=== PATIENT | male | born 1980 | race Caucasian/White ===

== ENCOUNTER 2017-11-26 16:45 | Inpatient (IN) | payer OTHER ==
[~2017-11-26] VITALS: Ht 182.9 cm; Wt 86.2 kg
--- NOTE | 2017-11-26 16:45 | NUR ---
PT TO BED 9 BY EMS
[2017-11-26 16:48] VITALS: BP 114/86
--- NOTE | 2017-11-26 16:52 | NUR ---
37YO M BIBA FOR ALOC R/T ETOH. PT STATES DRINKING "ALOT" OF VODKA. 4 MG OF ZOFRAN GIVENT ODT INROUTE. PT WITH C/O LOWER ABD PAIN. PT STATES SI WANTING TO "TAKE PILLS TO KILL HIMSELF . SKIN IS PINK/WARM/DRY; AWAKE,ALERT; LUNGS CLEAR BL; HR EVEN AND REGULAR; PT DENIES ANY FEVER, CP, SOB, OR COUGH AT THIS TIME; PATIENT STATES PAIN OF 9/10 AT THIS TIME; VSS; PATIENT POSITIONED FOR COMFORT; HOB ELEVATED; BEDRAILS UP X2; BED DOWN. ER MD MADE AWARE OF PT STATUS.
--- NOTE | 2017-11-26 17:13 | NUR ---
[facility] CALLED FOR EVAL. [address] WHATLEY
--- NOTE | 2017-11-26 18:00 | NUR ---
[place] [employer] AT BEDSIDE TO ASSESS PT.
--- NOTE | 2017-11-26 18:17 | NUR ---
[place] [facility] PLACE PATIENT ON 5150 HOLD, DANGER TO SELF. OBSERVED SUICIDAL PROTOCOL.PATIENT PLACE CLOSE TO NURSES STATION WITH STEPHEN LYON.
--- NOTE | 2017-11-26 18:19 | NUR ---
PT MOVED TO BED 5
[2017-11-26] MEDS ORDERED: KETOROLAC 60 MG/2 ML VIAL IM ONE (18:40)
--- NOTE | 2017-11-26 19:10 | NUR ---
PT'S BELONGINGS ARE WITH SECURITY
--- NOTE | 2017-11-26 19:10 | NUR ---
Patient appears to be resting comfortably in bed. Vital Signs within normal limits. Respirations even and unlabored. sitter at bedside
--- NOTE | 2017-11-26 19:48 | NUR ---
Dr. Webster evaluating patient at bedside.
[2017-11-26 20:07] LABS: BASOPHILS # (AUTO) 0.1 K/uL (0.00-0.22); EOSINOPHILS # (AUTO) 0.1 K/uL (0-0.4); HEMATOCRIT 51.2 % (36-52); HEMOGLOBIN 17.4 g/dL (12.0-18.0); MEAN CORPUSCULAR HEMOGLOBIN 30 pg (27-31); MEAN CORPUSCULAR HGB CONC 34 g/dL (33-37); MEAN CORPUSCULAR VOLUME 86.8 fL (80-94); MONOCYTES % (AUTO) 9.6 % (1.7-9.3); NEUTROPHILS # (AUTO) 5.6 K/uL (1.8-7.7); NEUTROPHILS % (AUTO) 51.4 % (42.2-75.2); PLATELET COUNT (AUTO) 432 K/uL (140-450); RED CELL DISTRIBUTION WIDTH 13.8 % (11.6-13.7); WHITE BLOOD COUNT (AUTO) 10.9 K/uL (4.8-10.8)
--- NOTE | 2017-11-26 20:10 | NUR ---
Patient appears to be resting comfortably in bed. Vital Signs within normal limits. Respirations even and unlabored. sitter at bedside
[2017-11-26] MEDS ORDERED: NACL 0.9% 2,000 ML IV ONE (20:15)
[2017-11-26] MEDS ORDERED: LORazepam 2 MG/ML VIAL IVP ONE (20:15)
[2017-11-26 20:20] LABS: APPEARANCE,URINE CLEAR (CLEAR); BILIRUBIN,URINE NEGATIVE (NEGATIVE); BLOOD, URINE NEGATIVE (NEGATIVE); COLOR,URINE YELLOW (YELLOW); LEUKOCYTE ESTERASE ,URINE NEGATIVE (NEGATIVE); NITRITE, URINE NEGATIVE (NEGATIVE); UGLUCOSE NEGATIVE (NEGATIVE)
[2017-11-26 20:28] LABS: ACETAMINOPHEN < 0.5 ug/ml (10-30); ALBUMIN 4.2 g/dL (3.4-5.0); ANION GAP 8.9 (8-16); ASPARTATE AMINOTRANSFERASE 91 U/L (15-37); CARBON DIOXIDE 28.7 mmol/L (21-32); CHLORIDE 108 mmol/L (98-107); CREATININE 1.1 mg/dL (0.7-1.3); GFR ARICAN-AMERICAN 97 mL/min (>90); GLUCOSE 130 mg/dL (74-106); POTASSIUM 3.6 mmol/L (3.5-5.1); SALICYLATE < 2.8 mg/dL (2.8-20.0); SODIUM SERUM 142 mmol/L (136-145); TOTAL BILIRUBIN 0.7 mg/dL (0.0-1.0); UREA NITROGEN, BLOOD 11 mg/dL (7-18)
[2017-11-26 20:28] LABS: BARBITURATE, URINE NEG. ng/ml (NEG <=200); BENZODIAZEPINE, URINE NEG. ng/mL (NEG <=200); CANNABINOID, URINE NEG. ng/mL (NEG <=50); COCAINE, URINE NEG. ng/mL (NEG <=300); OPIATE, URINE NEG. ng/mL (NEG <=2000); PHENCYCLIDINE SCREEN,URINE NEG. ng/mL (NEG <=25)
--- NOTE | 2017-11-26 21:10 | NUR ---
Patient appears to be resting comfortably in bed. Vital Signs within normal limits. Respirations even and unlabored. sitter at bedside
--- NOTE | 2017-11-26 22:10 | NUR ---
Patient appears to be resting comfortably in bed. Vital Signs within normal limits. Respirations even and unlabored. sitter at bedside
--- NOTE | 2017-11-26 23:18 | NUR ---
Patient appears to be resting comfortably in bed. Vital Signs within normal limits. Respirations even and unlabored. sitter at bedside
--- NOTE | 2017-11-27 01:30 | NUR ---
PT AGITATED WITH DISRUPTIVE BEHAVIOR TO STAFF AND ER, STATES " THIS IS BULLSHIT, I NEED ATIVAN". PT REDIRECTED AND REORIENTED, NOT EFFECTIVE. SECURITY CALLED AT BEDSIDE
--- NOTE | 2017-11-27 01:55 | NUR ---
PT CONTINUES WITH DISRUPTIVE BEHAVIOR. MARYANN FRIEDMAN MADE AWARE
[2017-11-27] MEDS ORDERED: LORazepam 2 MG/ML VIAL IVP ONE (02:05)
--- NOTE | 2017-11-27 02:32 | NUR ---
PT ASLEEP COMFORTABLY AT THIS TIME. RESPIRATIONS EVEN AND UNLABORED
[2017-11-27] MEDS ORDERED: MULTIVITAMIN-12 10 ML, THIAMINE 100 MG, MAGNESIUM SULFATE 50% 2,000 MG, FOLIC ACID 1 MG... IV SCH ×5 (03:30)
--- NOTE | 2017-11-27 03:50 | NUR ---
PT ARRIVED AT UNIT VIA GURNEY, AMBULATED TO BED, NO DISTRESS NOTED, PT STABLE, ON ROOM AIR, NO SOB, REPORT RECEIVED FROM ER NURSE ANTONIO PARADA, IV TO RAC 18G PATENT, INTACT, SL, PT ON 5150 PRECAUTION, MRSA SWAB TAKEN, V/S TAKEN WNL, ORIENT PT TO BED, INITIAL ASSESSMENT DONE, ALL SAFETY PRECAUTION MET, 1:1 SITTER AT BEDSIDE, WILL CONTINUE TO MONITOR.
--- NOTE | 2017-11-27 03:52 | NUR ---
Patient will be admitted to care of [facility]. Admited to MS. Will go to room 109B. Belongings list completed. Report to SARA PARADA.
[2017-11-27 04:00] VITALS: BP 115/82
[2017-11-27] MEDS ORDERED: ACETAMINOPHEN 325 MG TAB PO PRN (04:20)
--- NOTE | 2017-11-27 04:21 | NUR ---
CALLED DR. ALLEN REGARDING PT BANANA BAG HAS NO RATE, PT STATED HAVING HEADACHE, AND PT REQUESTING ATIVAN, STATED UNDERSTANDING, TO RUN BANANA BAG AT 100ML/HR, ORDER TYLENOL 650MG PO PRN PAIN, AND TO ORDER REGULAR DIET FOR PT, WILL PUT IN ORDERS AND CONTINUE WITH ORDERS.
[2017-11-27] MEDS ORDERED: THIAMINE 200 MG/2 ML VIAL ONE ×2 (04:29→04:39)
[2017-11-27] MEDS ORDERED: MULTIVITAMIN-12 10 ML VIAL IV ONE ×2 (04:29→04:39)
[2017-11-27] MEDS ORDERED: MAGNESIUM SULFATE 50% 1000 MG/2 ML VIAL IV ONE (04:39)
[2017-11-27] MEDS ORDERED: FOLIC ACID 5 MG/ML SYR ONE (04:39)
--- NOTE | 2017-11-27 04:55 | NUR ---
MEDICATION ADMINISTERED, PT TOLERATED WELL, NO DISTRESS NOTED, 1:1 SITTER AT BEDSIDE, WILL CONTINUE TO MONITOR.
--- NOTE | 2017-11-27 05:32 | NUR ---
HEADACHE MEDICATION ADMINISTERED PER MD ORDER, PT TOLERATED WELL, NO DISTRESS NOTED, 1:1 SITTER AT BEDSIDE, WILL CONTINUE TO MONITOR.
[2017-11-27 06:58] LABS: ALBUMIN 3.6 g/dL (3.4-5.0); ANION GAP 7.3 (8-16); CARBON DIOXIDE 29.6 mmol/L (21-32); POTASSIUM 3.9 mmol/L (3.5-5.1); TOTAL BILIRUBIN 0.7 mg/dL (0.0-1.0)
--- NOTE | 2017-11-27 07:25 | NUR ---
ENDORSED PT TO DAY SHIFT NURSE DAVE PARADA, PT STABLE, NO DISTRESS NOTED, SITTER AT BEDSIDE
--- NOTE | 2017-11-27 07:30 | NUR ---
RECEIVED REPORT FROM CURRICULUM ASSISTANT PRINCIPAL NURSE. PT IS SLEEPING IN BED AT THIS TIME, BUT EASILY AWAKEN AAOX4, AMBULATORY, RESTING IN A SEMI FOWLERS POSITION, IV IS ON THE LEFT AC, PATENT INTACT, FLUSHING WELL, NO S/S OF RESPIRATORY DISTRESS OR DISCOMFORT NOTED, SAFETY/FALL/SUICIDAL PRECAUTIONS ARE IN PLACE, SITTER IS AT BEDSIDE, WILL CONTINUE TO MONITOR.
--- NOTE | 2017-11-27 07:53 | NUR ---
PATIENT HAS BEEN SCREENED AND CATEGORIZED LOW RISK. PATIENT WILL BE SEEN WITHIN 7 DAYS OF ADMISSION. 12/04/[address], [facility]
[2017-11-27 08:00] VITALS: BP 121/85
--- NOTE | 2017-11-27 08:00 | NUR ---
PT IS LAYING IN BED, SEMI FOWLERS POSITION, PT IS MOVING IN BED RESTLESSLY, PT IS CRYING. PT STATED, " I DONT FEEL GOOD, IM GOING THROUGH WITHDRAWALS, I REALLY DONT FEEL GOOD." I LET THE PATIENT KNOW I WOULD CALL THE DOCTOR TO INFORM HER BECAUSE HE DID NOT HAVE ANY MEDICATIONS ORDERED AT THIS TIME OTHER THAN TYLENOL. PT VERBALIZED UNDERSTANDING.
--- NOTE | 2017-11-27 08:10 | NUR ---
I PAGED DR. NICOLAS TO LET HER KNOW THE PATIENT WAS RESTLESS AND STATED HE WAS GOING THROUGH WITHDRAWALS. PER DR. NICOLAS GIVE ATIVAN 1MG IVP, Q4H, PRN.
[2017-11-27] MEDS: LORazepam 2 MG/ML VIAL IVP PRN ×3 (08:25→16:47)
--- NOTE | 2017-11-27 10:00 | NUR ---
PT IS SLEEPING IN BED, LEFT LATERAL POSITION, NO S/S OF DISTRESS OR DISCOMFORT NOTED, SITTER IS AT BEDSIDE, WILL CONTINUE TO MONITOR.
--- NOTE | 2017-11-27 12:48 | NUR ---
I LET DR. NICOLAS KNOW THE PATIENT WAS ASKING FOR ZOFRAN. PER DR. NICOLAS IT'S OKAY TO GIVE 4MG, IVP.
[2017-11-27] MEDS: busPIRone 5 MG TAB PO SCH ×2 (13:00→16:47)
[2017-11-27] MEDS ORDERED: ONDANSETRON 4 MG/2 ML VIAL IVP PRN (14:15)
--- NOTE | 2017-11-27 15:00 | NUR ---
PT RESTING IN BED AT THIS TIME, NO S/S OF DISTRESS OR DISCOMFORT NOTED, SITTER IS AT BEDSIDE.
[2017-11-27 16:00] VITALS: BP 132/82
--- NOTE | 2017-11-27 17:50 | NUR ---
PSYCH DOCTOR, DR. FONSECA HERE TO SEE PATIENT.
--- NOTE | 2017-11-27 18:30 | NUR ---
DISCHARGE INSTRUCTIONS GIVEN, IV REMOVED, CATHETER TIP INTACT, PT REFUSED FLU SHOT. PT STABLE UPON DISCHARGE.
[2017-11-28] MEDS ORDERED: MULTIVITAMIN-12 10 ML, THIAMINE 100 MG, MAGNESIUM SULFATE 50% 2,000 MG, FOLIC ACID 1 MG... IV SCH ×5 (09:00)
--- NOTE | 2017-11-29 07:57 | NUR ---
RETRO ER REPORT, H&P, CONSULT AND DISCHARGE INSTRUCTIONS FAXED TO [facility] [phone] NO DISCHARGE SUMMARY.
== END 2017-11-27 18:30 | disposition home or self-care (01) | DRG 775 ==
LOC: MED 16:45 → MTU 11-27 03:20
PROVIDERS: ADMIT Hospitalist; ATTEND Hospitalist
DX: F10.229 Alcohol dependence with intoxication, unspecified (principal); F33.1 Major depressive disorder, recurrent, moderate; F17.210 Nicotine dependence, cigarettes, uncomplicated; Y90.8 Blood alcohol level of 240 mg/100 ml or more; F41.0 Panic disorder [episodic paroxysmal anxiety]
CPT/HCPCS: 36415; 80053; 80305; 81003; 85025; 87081; 93005; 96361; 96372; 96374; 96376; 99285; A9153; G0480; G0482; J1885; J2060; J2405; J3411; J3475; J3490; J7030; J7060